=== PATIENT | female | born 1960 | race African-American/Black ===

== ENCOUNTER → 2020-08-12 | Outpatient (CLI) | payer OTHER ==
[~2020-08-12] MED LIST: AMLO-187 PO; ATOR20TA58 PO; HYDR-2761 PO; HYDR50TA9 PO; METO-247 PO; SERT100T PO
== END ==
LOC: LAB 13:52
PROVIDERS: ATTEND Orthopaedic Surgery
DX: Z01.812 Encounter for preprocedural laboratory examination (principal); M65.352 Trigger finger, left little finger; Z20.822 Contact with and (suspected) exposure to COVID-19
CPT/HCPCS: U0003; U0005

== ENCOUNTER 2020-08-14 05:43 | Day surgery (SDC) | payer OTHER ==
[~2020-08-14] VITALS: Ht 165.1 cm; Wt 68.0 kg
[~2020-08-14 05:43] MED LIST changes: -HYDR-2761 PO
[2020-08-14] MEDS ORDERED: fentaNYL PF VIAL 100 MCG/2 ML VIAL IVP PRN (06:00)
[2020-08-14] MEDS ORDERED: ceFAZolin SODIUM IV Push 1 GM VIAL. IVP PRN (06:00)
[2020-08-14] MEDS ORDERED: MORPHINE SULFATE 2 MG/ML VIAL. IVP PRN (06:00)
[2020-08-14] MEDS ORDERED: PROCHLORPERAZINE 10 MG/2 ML VIAL. IVP PRN (06:00)
[2020-08-14] MEDS ORDERED: IV RINGERS,LACTATED 1000ML 1,000 ML IV SCH (06:00)
[2020-08-14] MEDS ORDERED: HYDROmorphone 2 MG/ML VIAL IVP PRN (06:00)
[2020-08-14 06:21] VITALS: BP 177/93
[2020-08-14] MEDS ORDERED: BUPIVACAINE MPF 0.5% 30 ML VIAL. ONE (06:48)
[2020-08-14] MEDS ORDERED: fentaNYL PF VIAL 100 MCG/2 ML VIAL ONE ×2 (06:55→08:53)
[2020-08-14] MEDS ORDERED: LIDOCAINE 2% PF 5 ML VIAL. ONE (06:55)
[2020-08-14] MEDS ORDERED: PROPOFOL 10 MG/ML (20ML) VIAL. IV ONE (06:55)
[2020-08-14] MEDS ORDERED: HYDR-2761 PO (07:42)
--- NOTE | 2020-08-14 07:48 | DISCH ---
DISCHARGE INSTRUCTIONS Condition on Discharge Condition on Discharge: Stable Activity After Discharge Activity Instructions for Disc: Other, see below (Fine motor use with left hand only, no hard grasp) Weight Bearing Status after Di: Non weight bearing Diet after Discharge Diet after Discharge: Regular Wound Incision Care Wound/Incision Care: Change dressing (remove dressing in 3 days, then) Contacting the after DC Call your doctor for: Concerns you may have Follow-Up Follow up with: Dr. Ward or Deys[facility] 10 days ALPHONSO WARD MD August 14, 2020 07:48
[2020-08-14] MEDS ORDERED: niCARdipine INJ. IV ONE (08:01)
[2020-08-14] MEDS ORDERED: SEVOFLURANE 16 TO 30 MINUTES. IH ONE (08:01)
[2020-08-14] MEDS ORDERED: ONDANSETRON PF 4 MG/2 ML VIAL. ONE (08:06)
[2020-08-14] MEDS ORDERED: HYDROcodone/APAP 5/325MG 1 TAB TABLET PO ONE (09:00)
[2020-08-14] MEDS: fentaNYL PF VIAL 100 MCG/2 ML VIAL IVP PRN ×2 (09:45→09:56)
[2020-08-14 10:27] VITALS: BP 144/93
--- NOTE | 2020-08-14 15:11 | PDOC4 ---
Operative Note Operative Note Date of surgery: 08/14/2020 Preoperative diagnosis: Left fourth and fifth trigger fingers Postoperative diagnosis: Same Operative procedure: Trigger finger release of left fourth and fifth fingers Surgeon: Ed Anesthesia: General Estimated blood loss: 2 cc Complications: None Operative indications: Please see my orthopedic clinic note for detailed operative indications and note that in addition to the symptomatic triggering of the left fourth and fifth fingers she presented preoperatively with additional pain in the right long finger but with stiffness and no triggering. We had reviewed risk benefits postoperative course of trigger finger release including the possibility of nerve or blood vessel damage pain and scarring over the surgical site among others all her questions were answered she wishes to proceed with surgical evaluation and treatment Operative text: Patient was identified procedure verified patient placed in the supine position on the operating table. After adequate amounts of general anesthesia were administered the left upper extremity was prepped and draped in standard sterile fashion with an upper arm tourniquet. After timeout was performed patient procedure identified and verified the left upper extremity was exsanguinated by Esmarch bandage tourniquet inflated to 250 mmHg and an incision was made over the distal palmar crease centered over the left fourth and fifth flexor tendons and careful blunt dissection was carried out to protect the neurovascular bundles and incision of the tendon sheath was carried out along the midline of the fourth and fifth respectively with release of the A1 marietta in both cases and triggering was completely resolved with full range of motion. Flexor profundus and superficialis were noted to be intact. Thorough irrigation carried out normal saline solution bleeding points controlled by electrocautery and skin closed with nylon suture. Sterile soft dressings were applied fingers were noted be warm pink following deflation of tourniquet patient was returned to recovery room stable condition having tolerated procedure well. ALPHONSO BLANCHARD MD August 14, 2020 15:11
== END 2020-08-14 10:44 | disposition home or self-care (01) ==
LOC: SURG 05:43
PROVIDERS: ATTEND Orthopaedic Surgery
DX: M65.342 Trigger finger, left ring finger (principal); M65.352 Trigger finger, left little finger; I10 Essential (primary) hypertension; E78.00 Pure hypercholesterolemia, unspecified; F32.9 Major depressive disorder, single episode, unspecified; Z90.710 Acquired absence of both cervix and uterus; Z98.890 Other specified postprocedural states; Z87.891 Personal history of nicotine dependence; Z79.899 Other long term (current) drug therapy; Z72.89 Other problems related to lifestyle; Z88.8 Allergy status to other drugs, medicaments and biological substances
CPT/HCPCS: 26055; A4930; A6402; J0690; J2405; J2704; J3010; J3490; A4657; A6452